=== PATIENT | female | born 1950 | race Caucasian/White ===

== ENCOUNTER 2018-09-27 20:05 | Emergency (ER) | payer OTHER ==
[~2018-09-27] VITALS: Ht 157.5 cm; Wt 86.2 kg
[2018-09-27 20:19] VITALS: BP_SYST 121
[2018-09-27] MEDS ORDERED: IBUPROFEN 600 MG TABLET PO ONE (21:15)
[2018-09-27] MEDS: HYDROcodone/ACETAMIN 5-325 MG TAB (NORCO/ VICODIN) PO ONE (22:01)
[2018-09-27 22:45] VITALS: BP_SYST 120
== END 2018-09-27 22:45 | disposition home or self-care (01) ==
LOC: SED 20:05
DX: S92.351A Displaced fracture of fifth metatarsal bone, right foot, initial encounter for closed fracture (principal); R03.0 Elevated blood-pressure reading, without diagnosis of hypertension; Z90.49 Acquired absence of other specified parts of digestive tract; W10.9XXA Fall (on) (from) unspecified stairs and steps, initial encounter; Y93.89 Activity, other specified; Y92.89 Other specified places as the place of occurrence of the external cause; Y99.8 Other external cause status
CPT/HCPCS: 99283